=== PATIENT | female | born 1950 | race Caucasian/White ===

== ENCOUNTER 2016-06-07 17:04 | Outpatient (CLI) | payer OTHER | END 2016-06-07 17:05 | disposition home or self-care (01) | DX: M54.2 Cervicalgia (principal); R51 Headache ==

== ENCOUNTER 2017-01-26 12:40 | Emergency (ER) | payer MEDICARE, OTHER ==
[2017-01-26 12:53] VITALS: BP 144/97
[2017-01-26 13:17] LABS: BILIRUBIN,URINE NEGATIVE (NEGATIVE)
[2017-01-26 13:20] LABS: UA w/ MICROSCOPIC CHARGE YES
[2017-01-26 13:27] LABS: WBC,URINE >25 /HPF (0-5)
[2017-01-26 13:28] LABS: UR CULTURE IF IND INDICATED
[2017-01-26] MEDS ORDERED: PHENAZOPYRIDINE 100 MG TABLET PO STA (13:43)
[2017-01-26] MEDS ORDERED: NITROFURANTOIN MACRO 100 MG CAPSULE PO STA (13:43)
--- NOTE | 2017-01-26 13:43 | ED Physician Documentation ---
History of Present Illness - Stated complaint Stated Complaint: FEMALE - Chief complaint Chief Complaint: UTI - History obtained from History obtained from: Patient (pt reports that last night she satrted tohave urinary sx, burining with urination, blood inher urine and urinary frequency. no fevers, no back pain, no vomiting, does have lower abdominal pain.) Review of Systems Constitutional: denies: Fever, Chills Throat: denies: Sore throat Cardiac: denies: Chest pain / pressure, Palpitations Respiratory: denies: Dyspnea, Cough GI: reports: Abdominal Pain. denies: Nausea, Vomiting, Constipation, Diarrhea, Bloody / black stool : reports: Dysuria, Frequency, Hesitancy, Hematuria. denies: Unable to Void, Incontinent, Vaginal bleeding Skin: denies: Rash, Lesions Musculoskeletal: denies: Back pain Neurologic: denies: Generalized weakness, Headache PD PAST MEDICAL HISTORY - Past Medical History Past Medical History: Yes Cardiovascular: High cholesterol - Past Surgical History Past Surgical History: Yes General: Splenectomy /[employer]: Hysterectomy HEENT: Tonsil/Adenoidectomy - Present Medications Home Medications: Ambulatory Orders Medication Instructions Recorded Confirmed Atorvastatin Calcium 10 mg PO QPM 01/26/17 01/26/17 Estradiol [Estrace] 42.5 gm VG DAILY 01/26/17 01/26/17 Nitrofurantoin Monohyd/M-Cryst 100 mg PO BID #10 capsule 01/26/17 [Macrobid 100 mg Capsule] Phenazopyridine [Pyridium] 100 mg PO TID PRN #10 tablet 01/26/17 - Allergies Allergies/Adverse Reactions: Allergies Allergy/AdvReac Type Severity Reaction Status Date / Time Sulfa (Sulfonamide Allergy Rash Verified 01/26/17 12:53 Antibiotics) - Social History Does the pt smoke?: No Smoking Status: Never smoker Does the pt drink ETOH?: No Does the pt have substance abuse?: No - Immunizations Immunizations are current?: Yes PD ED PE NORMAL - Vitals Vital signs reviewed: Yes - General General: Alert and oriented X 3, No acute distress, Well developed/nourished - HEENT HEENT: Moist mucous membranes - Cardiac Cardiac: RRR, No murmur - Respiratory Respiratory: No respiratory distress - Abdomen Abdomen: Soft. No: Non tender (suprapubic tenderness) - Back Back: No CVA TTP - Derm Derm: Normal color, Warm and dry, No rash - Extremities Extremities: No deformity - Neuro Neuro: Alert and oriented X 3 Eye Opening: Spontaneous Motor: Obeys Commands Verbal: Oriented GCS Score: 15 - Psych Psych: Normal mood, Normal affect Results - Vitals Vitals: Vital Signs - 24 hr 01/26/17 12:50 Temperature 36.3 C L Heart Rate 79 Respiratory 16 Rate Blood Pressure 144/97 H O2 Saturation 100 Oxygen O2 Source Room air - Labs Labs: Laboratory Tests 01/26/17 12:56 Urine Color LT RED Urine Clarity BLOODY Urine pH 8.0 H Ur Specific Wylie 1.010 Urine Protein 100 H Urine Glucose (UA) NEGATIVE Urine Ketones NEGATIVE Urine Occult Blood LARGE H Urine Nitrite NEGATIVE Urine Bilirubin NEGATIVE Urine Urobilinogen 0.2 (NORMAL) Ur Leukocyte Esterase MODERATE H Urine RBC TNTC H Urine WBC >25 H Ur Squamous Epith Cells RARE Squamous Urine Bacteria None Seen Ur Microscopic Review INDICATED Urine Culture Comments INDICATED PD MEDICAL DECISION MAKING - ED course Complexity details: d/w patient ED course: pt with hx and PE C/W UTI and cystitis. no signs of pyelo. considered renal stone but her hx and PE is not C/W this. Discussed with pt. her last UTI was 6 months ago. she states she has been on multiple medications over the years of UTI's and states they have all worked. Will give macrobid and pyridium. Pt given return precautions. Departure - Departure Disposition: 01 Home, Self Care Clinical Impression: Urinary tract infection, Cystitis Condition: Good Instructions: Urinary Tract Infecs Women Follow-Up: Rafaela Quach PA [Primary Care Provider] - Prescriptions: Nitrofurantoin Monohyd/M-Cryst [Macrobid 100 mg Capsule] 100 mg PO BID #10 capsule Phenazopyridine [Pyridium] 100 mg PO TID PRN #10 tablet PRN Reason: Abdominal Pain Comments: take all of your medications as directed. Return to the ER for any new or worsening symptoms, fevers, back pain, vomiting or any other concerning symptoms.
[2017-01-26] MEDS ORDERED: PHENAZOPYRIDINE 100 MG TABLET PO ONE (13:51)
[2017-01-26] MEDS ORDERED: NITROFURANTOIN MACRO 100 MG CAPSULE PO ONE (13:51)
== END 2017-01-26 14:18 | disposition home or self-care (01) ==
LOC: ED 12:40
DX: N30.90 Cystitis, unspecified without hematuria (principal); E78.00 Pure hypercholesterolemia, unspecified
CPT/HCPCS: 81001; 87086; 99283; A9270; 81003

== ENCOUNTER 2017-06-19 10:55 | Outpatient (CLI) | payer MEDICARE ==
--- NOTE | 2017-06-21 12:07 | Mammography Report ---
DIGITAL SCREENING MAMMOGRAM: 06/19/2017 INDICATION: A 67-year-old for screening. COMPARISON: 11/2014, 10/2011, 12/2009 TECHNIQUE: Routine CC and MLO projections were obtained of the breasts. FINDINGS: Parenchymal tissue within both breasts is heterogeneously dense, which may lower the sensitivity of mammography; however, there are no dominant masses, suspicious microcalcifications, or secondary signs of malignancy. In comparison to the previous studies, there are no significant changes. ASSESSMENT: NO MAMMOGRAPHIC EVIDENCE OF MALIGNANCY. NO SIGNIFICANT INTERVAL CHANGES. RECOMMENDATION: Screening mammography is recommended annually. BIRADS CATEGORY 1 - NEGATIVE. STANDARD QUALIFYING STATEMENTS: 1. This examination was reviewed with the aid of Computed-Aided Detection (CAD). 2. A negative or benign imaging report should not delay biopsy if clinically suspicious findings are present. Consider surgical consultation if warranted. More than 5% of cancers are not identified by imaging. 3. Dense breasts may obscure an underlying neoplasm. TD: 06/21/2017 12:06
== END 2017-06-19 10:56 | disposition home or self-care (01) ==
LOC: DI.S 10:55
PROVIDERS: ATTEND Physician Assistant
DX: Z12.31 Encounter for screening mammogram for malignant neoplasm of breast (principal)
CPT/HCPCS: 77067

== ENCOUNTER 2017-06-26 08:33 | Outpatient (CLI) | payer MEDICARE ==
--- NOTE | 2017-06-27 15:38 | DEXA Report ---
DEXA SCAN: 06/26/2017 CLINICAL INDICATION: Postmenopausal. TECHNIQUE: Dual energy x-ray absorptiometry (DXA) was performed on a [employer] system. Regions measured are the AP spine, femoral neck, and, if needed, forearm. COMPARISON: None. FINDINGS Data for the lumbar spine is as follows: REGION BMD (g/cm/cm) T-SCORE Z-SCORE L1 0.780 -2.9 -0.9 L2 0.863 -2.8 -0.8 L3 0.882 -2.6 -0.6 L4 1.010 -1.6 0.4 L1-L4 0.895 -2.4 -0.4 NOTE: All evaluable vertebrae are used for classification. Data for the hip is as follows: REGION BMD (g/cm/cm) T-SCORE Z-SCORE Neck 0.791 -1.8 0.0 TOTAL 0.775 -1.8 -0.3 NOTE: The femoral neck or total proximal femur, whichever is lowest, is used for classification. IMPRESSION WHO CLASSIFICATION BASED ON THE INTERNATIONAL REFERENCE STANDARD IS OSTEOPENIA. FRACTURE RISK IS INCREASED. RECOMMENDATION Patients with diagnosis of osteoporosis or osteopenia should have regular bone mineral density assessment. For those eligible for Medicare, routine testing is allowed once every 2 years. Testing frequency can be increased for patients who have rapidly progressing disease or for those who are receiving medical therapy to restore bone mass. COMMENT World Health Organization (WHO) definitions for osteoporosis and osteopenia: NORMAL BMD: T-score at 1.0 or higher, fracture risk is low. OSTEOPENIA BMD: T-score between 1.0 and -2.5, fracture risk is increased. OSTEOPOROSIS BMD: T-score at 2.5 or lower, fracture risk high. National Osteoporosis Foundation recommends: 1. Obtain adequate dietary calcium (at least 1200 mg per day) and vitamin D (400 -800 international units per day). 2. Participate, as appropriate, in regular weightbearing and muscle- strengthening exercise. 3. Avoid tobacco use and reduce alcohol and caffeine intake. 4. For more detailed information see the website at www.NOF.org. TD: 06/26/2017 15:27 HARSH
== END 2017-06-26 08:34 | disposition home or self-care (01) ==
LOC: DI 08:33
PROVIDERS: ATTEND Physician Assistant
DX: Z13.820 Encounter for screening for osteoporosis (principal); M85.89 Other specified disorders of bone density and structure, multiple sites; Z78.0 Asymptomatic menopausal state
CPT/HCPCS: 77080

== ENCOUNTER 2019-12-08 12:53 | Outpatient (CLI) | payer MEDICARE ==
--- NOTE | 2019-12-08 16:52 | DEXA Report ---
PROCEDURE: Dexa Spine and/or Hip INDICATIONS: OTH DISD OF BONE DENSITY AND STRUCTURE, MULTIPLE TECHNIQUE: Dual energy x-ray absorptiometry (DXA) was performed on a [employer] System. Regions measur ed are the AP Spine, femoral neck, and if needed forearm. COMPARISON: 06/28/2017 bone densitometry, same methodology. FINDINGS: Lumbar Spine: Bone Mineral Density 0.956 g/cm/cm,T score -1.9, osteopenia, and this represents a 6.8% improvemen t in overall bone mineral density at the lumbosacral spine. Left Hip: Bone Mineral Density 0.790 g/cm/cm,T score -1.7, osteopenia Left Femoral Neck: Bone Mineral Density 0.740 g/cm/cm, T score -2.1, osteopenia (T score greater or equal to -1.0: NORMAL) (T score from -1.1 to -2.4: OSTEOPENIA) (T score less than or equal to -2.5 to: OSTEOPOROSIS) Impression: There is osteopenia at the lumbosacral spine and at the left hip/femoral neck. There has been however a statistically significant 6.8% improvement and lumbosacral spine bone mineral density from the comparison study in June 2017. Slight improvement at the left hip region overall also has o ccurred, 2%. Patients with diagnosis of osteoporosis or osteopenia should have regular bone mineral density assess ment. For those eligible for Medicare, routine testing is allowed once every 2 years. Testing frequ ency can be increased for patients who have rapidly progressing disease or for those who are receivin g medical therapy to restore bone mass. Reviewed by: Edin Marin MD on 12/08/2019 4:51 PM PDT Approved by: Edin Marin MD on 12/08/2019 4:51 PM PDT Station ID: [id number]
== END 2019-12-08 12:54 | disposition home or self-care (01) ==
LOC: DI 12:53
PROVIDERS: ATTEND Registered Nurse
DX: M85.89 Other specified disorders of bone density and structure, multiple sites (principal)
CPT/HCPCS: 77080

== ENCOUNTER 2019-12-08 12:56 | Outpatient (CLI) | payer MEDICARE ==
--- NOTE | 2019-12-17 16:00 | Mammography Report ---
BILATERAL DIGITAL SCREENING MAMMOGRAM 3D/2D: 12/08/2019 CLINICAL: Routine screening. Comparison is made to exams dated: 06/19/2017 mammogram, 11/15/2014 mammogram - [facility], 10/08/2011 mammogram, and [facility]. The tissue of both breas ts is predominantly fatty. No significant masses, calcifications, or other findings are seen in either breast. There has been no significant interval change. IMPRESSION: NEGATIVE There is no mammographic evidence of malignancy. A 1 year screening mammogram is recommended. This exam was interpreted at Station ID: [id number]. NOTE: For mammograms, a report in lay terms will be sent to the patient. Approximately 15% of breast malignancies will not be visualized mammographically. In the management of a palpable breast mass, a negative mammogram must not discourage biopsy of a clinically suspicious lesion. Electronically Signed By: Max Ho M.D., jr/ginger:12/08/2019 14:02:00 ACR BI-RADS Category 1: Negative 3341F PARENCHYMAL PATTERN: (F) - The breast(s) demonstrate(s) diffuse fatty replacement. BI-RADS CATEGORY: (1) - 1 RECOMMENDATION: (ANNUAL) - Recommend routine annual screening mammography. [id number] 1 year screening LATERALITY: (B)
== END 2019-12-08 12:57 | disposition home or self-care (01) ==
LOC: DI 12:56
PROVIDERS: ATTEND Registered Nurse
DX: Z12.31 Encounter for screening mammogram for malignant neoplasm of breast (principal)
CPT/HCPCS: 77063; 77067

== ENCOUNTER 2020-09-11 16:12 | Outpatient (CLI) | payer MEDICARE | END 2020-09-11 16:13 | disposition home or self-care (01) | LOC: COV 16:12 | PROVIDERS: ATTEND Internal Medicine Cardiovascular Disease | DX: Z01.812 Encounter for preprocedural laboratory examination (principal); Z20.822 Contact with and (suspected) exposure to COVID-19 ==

== ENCOUNTER 2021-04-30 09:42 | Outpatient (CLI) | payer MEDICARE ==
[2021-04-30 14:28] LABS: HCT - HEMATOCRIT 43.3 % (37.0-47.0); HGB - HEMOGLOBIN 14.3 g/dL (12.0-16.0); MEAN CORPUSCULAR HEMOGLOBIN 30.6 pg (27.0-31.0); MEAN CORPUSCULAR VOLUME 92.7 fL (81.0-99.0); MEAN PLATELET VOLUME 12.4 fL (7.9-10.8); RED BLOOD COUNT 4.67 10^6/uL (4.20-5.40); WHITE BLOOD COUNT 6.9 x10^3/uL (4.8-10.8)
[2021-04-30 14:59] LABS: ALBUMIN/GLOBULIN RATIO 1.3 (1.0-2.2); ALKALINE PHOSPHATASE 65 IU/L (42-121); ALT ALANINE AMINOTRANSFERASE 28 IU/L (10-60); AST ASPARTATE AMINOTRANSFERASE 28 IU/L (10-42); BILIRUBIN,TOTAL 0.8 mg/dL (0.2-1.0); BUN - BLOOD UREA NITROGEN 19 mg/dL (6-20); CARBON DIOXIDE - CO2 26 mmol/L (21-32); CHLORIDE 105 mmol/L (101-111); CHOL/HDL RATIO 3.8 (<4.4); CHOLESTEROL 152 mg/dL; CREATININE 0.7 mg/dL (0.4-1.0); GFR - MDRD 82 (>89); GLUCOSE 106 mg/dL (70-100); HDL CHOLESTEROL 40 mg/dL; LDL CHOLESTEROL,CALCULATED 63 mg/dL; LDL/HDL RATIO 1.6 (<4.4); POTASSIUM 3.6 mmol/L (3.5-5.0); SODIUM 138 mmol/L (135-145); TOTAL PROTEIN 7.1 g/dL (6.7-8.2); TRIGLYCERIDES 243 mg/dL; VLDL CHOLESTEROL 49 mg/dL
[2021-04-30 15:02] LABS: THYROID STIMULATING HORMONE 3.26 uIU/mL (0.34-5.60)
== END 2021-04-30 09:43 | disposition home or self-care (01) ==
LOC: LAB.S 09:42
PROVIDERS: ATTEND Family Medicine
DX: E78.2 Mixed hyperlipidemia (principal); Z13.1 Encounter for screening for diabetes mellitus; R53.83 Other fatigue
CPT/HCPCS: 36415; 80053; 80061; 83721; 84443; 85027

== ENCOUNTER 2022-07-01 08:44 | Outpatient (CLI) | payer MEDICARE ==
--- NOTE | 2022-07-02 10:23 | Mammography Report ---
BILATERAL DIGITAL SCREENING MAMMOGRAM 3D/2D WITH EXAGGERATED CC: 07/01/2022 CLINICAL: Routine screening. Comparison is made to exams dated: 12/08/2019 mammogram, 06/19/2017 mammogram, and 11/15/2014 mammogram - [facility]. Both breasts are heterogeneously dense, which may obscure small masses (category c / 51-75% glandular tissue). No significant masses, calcifications, or other findings are seen in either breast. There has been no significant interval change. IMPRESSION: NEGATIVE There is no mammographic evidence of malignancy. A 1 year screening mammogram is recommended. Based on the Tyrer Cuzick model (a risk assessment model) the patients lifetime risk is 4.8% and her 10 year risk is 3.5%. According to the ACR, ACS, and NCCN guidelines, an annual breast MRI exam mitchel g with mammogram is recommended if the patients lifetime risk is 20% or greater. This exam was interpreted at Station ID: [id number]. NOTE: For mammograms, a report in lay terms will be sent to the patient. Approximately 15% of breast malignancies will not be visualized mammographically. In the management of a palpable breast mass, a negative mammogram must not discourage biopsy of a clinically suspicious lesion. Electronically Signed By: Mir aguilar/ginger:07/01/2022 13:40:07 letter sent: No_Letter ACR BI-RADS Category 1: Negative 3341F PARENCHYMAL PATTERN: (D) - The breast(s) demonstrate(s) heterogeneously dense fibroglandular [place] nye. BI-RADS CATEGORY: (1) - 1 Mammogram [id number] 1 year screening LATERALITY: (B)
== END 2022-07-01 08:45 | disposition home or self-care (01) ==
LOC: DI.S 08:44
DX: Z12.31 Encounter for screening mammogram for malignant neoplasm of breast (principal)

== ENCOUNTER 2023-06-06 08:00 | Outpatient (CLI) | payer MEDICARE | END 2023-06-06 23:59 | disposition home or self-care (01) | LOC: LAB.WCP 08:00 | PROVIDERS: ATTEND Registered Nurse | DX: R82.79 Other abnormal findings on microbiological examination of urine (principal); R30.0 Dysuria | CPT/HCPCS: 87077; 87086; 87181 ==

== ENCOUNTER 2023-07-10 08:00 | Outpatient (CLI) | payer MEDICARE | END 2023-07-10 08:01 | disposition home or self-care (01) | LOC: LAB.S 08:00 | PROVIDERS: ATTEND Emergency Medicine | DX: J34.89 Other specified disorders of nose and nasal sinuses (principal) ==